=== PATIENT | female | born 1995 | race Caucasian/White ===

== ENCOUNTER 2018-02-14 10:30 | Emergency (ER) | payer OTHER ==
[~2018-02-14] VITALS: Ht 157.5 cm; Wt 49.9 kg
--- NOTE | 2018-02-14 11:05 | NUR ---
Dr Peacock is now@bedside doing the MSE.
--- NOTE | 2018-02-14 13:11 | NUR ---
Patient discharged to home in stable conditon. Written and verbal after care instructions given to patient and family. Patient and family verbalized understanding of instructions. Patient left ER with brisk steady gait.
== END 2018-02-14 13:13 | disposition home or self-care (01) ==
LOC: ER 10:30
DX: S16.1XXA Strain of muscle, fascia and tendon at neck level, initial encounter (principal); V48.5XXA Car driver injured in noncollision transport accident in traffic accident, initial encounter; Y93.89 Activity, other specified; Y92.410 Unspecified street and highway as the place of occurrence of the external cause; Y99.8 Other external cause status
CPT/HCPCS: 72125; A4663